=== PATIENT | male | born 1985 | race American Indian/Alaskan Native ===

== ENCOUNTER 2017-07-22 11:26 | Emergency (ER) | payer MEDICARE ==
[2017-07-22 13:52] LABS: Basophils % (Auto) 0.3 % (0.0-1.8); Eosinophils # (Auto) 0.5 K/mm3 (0.0-0.4); Eosinophils % (Auto) 3.7 % (0.0-4.3); Hematocrit 46.1 % (35.5-45.6); Hemoglobin 15.7 gm/dl (11.8-15.2); Lymphocytes # (Auto) 4.1 K/mm3 (1.2-5.4); Lymphocytes % (Auto) 29.1 % (13.4-35.0); Mean Corpuscular HGB Conc 34 % (32-34); Mean Corpuscular Hemoglobin 28 pg (28-32); Mean Corpuscular Volume 82 fl (84-94); Monocytes % (Auto) 7.4 % (0.0-7.3); Platelet Count 184 K/mm3 (140-440); Red Blood Count 5.59 M/mm3 (3.65-5.03); Red Cell Distribution Width 15.4 % (13.2-15.2)
[2017-07-22 14:07] LABS: Bacteria,Urine 1+ /HPF (Negative); Bilirubin,Urine SM (Negative); Blood,Urine NEG (Negative); Color,Urine Amber (Yellow); Hyaline Casts,Urine 46 /LPF; Mucus,Urine FEW /HPF; Nitrite,Urine NEG (Negative)
[2017-07-22 14:10] LABS: Calcium 9.7 mg/dL (8.4-10.2)
[2017-07-22 14:12] LABS: Alanine Aminotransferase 7 units/L (7-56); Albumin 4.9 g/dL (3.9-5)
[2017-07-22 14:13] LABS: Ictotest,Urine Negative (Negative)
[2017-07-22 14:14] LABS: Bilirubin,Direct < 0.2 mg/dL (0-0.2)
[2017-07-22] MEDS ORDERED: ZOFRAN IV ONE (17:21)
[2017-07-22] MEDS ORDERED: NACL 0.9% 1000 ML 1,000 ML IV ONE ×2 (17:21→20:08)
--- NOTE | 2017-07-22 17:39 | Emergency Department Report ---
ED N/V/D HPI - General Chief complaint: Nausea/Vomiting/Diarrhea Stated complaint: DEHYDRATED Time Seen by Provider: 07/22/17 17:06 Source: patient, old records reviewed Mode of arrival: Ambulatory Limitations: No Limitations - History of Present Illness Initial comments: 31 yo male past medical history hypertension which resolved after renal transplant, renal transplant 2 secondary to nephrotic syndrome presents to the hospital complains of dehydration secondary to nausea, vomiting, and diarrhea with 3 days. Patient unable to tolerate much by mouth intake. Patient denies fever, recent travel, sick contacts, hematochezia, hematemesis, or abdominal pain. Patient does take immune suppressive medication. Patient first renal transplant was in 2000 and patient required a second renal transplant on the opposite side 6 years ago due to initial transplant failure. [facility] [employer] at [facility] is Dr. Ponce - Related Data Home Medications Medication Instructions Recorded Confirmed Last Taken Mycophenolate Mofetil 1,000 mg PO BID 04/11/15 04/11/15 04/10/15 Pantoprazole [Protonix] 40 mg PO QDAY 04/11/15 04/11/15 04/10/15 Prednisone [predniSONE (Ruth) ER 5 mg PO QDAY 04/11/15 04/11/15 04/10/15 TAB] Tacrolimus [Prograf] 4 mg PO QDAY 04/11/15 04/11/15 04/10/15 Tretinoin/Emollient Base 40 gm TP QDAY 04/11/15 04/11/15 04/10/15 [Tretinoin 0.05% Emollient Crm] levETIRAcetam [Keppra TAB] 500 mg PO BID 04/11/15 04/11/15 04/10/15 Previous Rx's Medication Instructions Recorded Last Taken Type Gentamicin 0.3% Ophth Soln 2 drops OP Q4H #1 bottle 07/01/15 Unknown Rx Allergies Allergy/AdvReac Type Severity Reaction Status Date / Time No Known Allergies Allergy Verified 04/11/15 01:21 ED Review of Systems ROS: Stated complaint: DEHYDRATED Other details as noted in HPI Comment: All other systems reviewed and negative Other: Constitutional: No fevers chills Eyes: No eye pain visual changes ENT: No ear pain or throat pain Neck: Denies pain Respiratory: Denies cough wheezing shortness of breath Cardiovascular: Denies chest pain, palpitations, syncope GI: as per hpi : Denies dysuria Musculoskeletal: Denies back pain Skin: Denies rash, lesions, erythema Neurologic: Denies headache, numbness, weakness Psychiatric: Denies suicidal ideation, hallucinations ED Past Medical Hx - Past Medical History Previous Medical History?: Yes Hx Hypertension: Yes Additional medical history: KIDNEY FAILURE - Surgical History Past Surgical History?: Yes Additional Surgical History: BILATERAL KIDNEY TRANSPLANT - Social History Smoking Status: Current Every Day Smoker Substance Use Type: Marijuana, Prescribed - Medications Home Medications: Home Medications Medication Instructions Recorded Confirmed Last Taken Type Mycophenolate Mofetil 1,000 mg PO BID 04/11/15 04/11/15 04/10/15 History Pantoprazole [Protonix] 40 mg PO QDAY 04/11/15 04/11/15 04/10/15 History Prednisone [predniSONE (Ruth) ER 5 mg PO QDAY 04/11/15 04/11/15 04/10/15 History TAB] Tacrolimus [Prograf] 4 mg PO QDAY 04/11/15 04/11/15 04/10/15 History Tretinoin/Emollient Base 40 gm TP QDAY 04/11/15 04/11/15 04/10/15 History [Tretinoin 0.05% Emollient Crm] levETIRAcetam [Keppra TAB] 500 mg PO BID 04/11/15 04/11/15 04/10/15 History Gentamicin 0.3% Ophth Soln 2 drops OP Q4H #1 bottle 07/01/15 Unknown Rx ED Physical Exam - General Limitations: No Limitations - Other Other exam information: General: No limitations, patient is alert in no acute distress Head exam: Atraumatic, normocephalic Eyes exam: Normal appearance ENT: Moist mucous membrane, normal oropharynx Neck exam: Normal inspection, full range of motion Respiratory exam: Clear to auscultation bilateral, no wheezes, rales, crackles Cardiovascular: Normal rate and rhythm, normal heart sounds Abdomen: Soft, nondistended, scars to bilateral lower abdomen secondary to surgery, with normal bowel sounds, no rebound, or guarding Extremity: Full range of motion normal inspection no deformity Back: Normal Inspection, full range of motion, no tenderness Neurologic: Alert, oriented x3, cranial nerves intact, no motor or sensory deficit Psychiatric: normal affect, normal mood Skin: Warm, dry, intact ED Course Vital Signs 07/22/17 07/22/17 12:37 19:16 Temperature 98.9 F 98.1 F Pulse Rate 94 H 98 H Respiratory 16 16 Rate Blood Pressure 104/69 Blood Pressure 119/88 [Left] O2 Sat by Pulse 94 100 Oximetry - Consultations Consultation #1: 07/22/17 17:39 [facility] paged to transfer pt given hx of renal transplant. Awaiting call back. 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 07/22/17 18:52 call back at this time Case d/w Dr Albert at [facility] rec urine culture, blood culture Pt accepted to [facility] (awaiting bed availability) 07/22/17 19:30 [facility] transfer notified of unremarkable ct abd/pelvis (no acute findings) ED Medical Decision Making - Lab Data Result diagrams: 07/22/17 13:40 07/22/17 13:40 Lab Results 07/22/17 07/22/17 07/22/17 Range/Units 13:40 13:40 13:40 WBC 14.1 H (4.5-11.0) K/mm3 RBC 5.59 H (3.65-5.03) M/mm3 Hgb 15.7 H (11.8-15.2) gm/dl Hct 46.1 H (35.5-45.6) % MCV 82 L (84-94) fl MCH 28 (28-32) pg MCHC 34 (32-34) % RDW 15.4 H (13.2-15.2) % Plt Count 184 (140-440) K/mm3 Lymph % (Auto) 29.1 (13.4-35.0) % [place] % (Auto) 7.4 H (0.0-7.3) % Eos % (Auto) 3.7 (0.0-4.3) % Baso % (Auto) 0.3 (0.0-1.8) % Lymph # 4.1 (1.2-5.4) K/mm3 [place] # 1.0 H (0.0-0.8) K/mm3 Eos # 0.5 H (0.0-0.4) K/mm3 Baso # 0.0 (0.0-0.1) K/mm3 Seg Neutrophils % 59.5 (40.0-70.0) % Seg Neutrophils # 8.4 H (1.8-7.7) K/mm3 Sodium 137 (137-145) mmol/L Potassium 4.6 (3.6-5.0) mmol/L Chloride 99.3 (98-107) mmol/L Carbon Dioxide 21 L (22-30) mmol/L Anion Gap 21 mmol/L BUN 49 H (9-20) mg/dL Creatinine 3.5 H (0.8-1.5) mg/dL Estimated GFR 25 ml/min BUN/Creatinine Ratio 14 % Glucose 102 H (75-100) mg/dL Calcium 9.7 (8.4-10.2) mg/dL Total Bilirubin 0.30 (0.1-1.2) mg/dL Direct Bilirubin < 0.2 (0-0.2) mg/dL Indirect Bilirubin 0.1 mg/dL AST 16 (5-40) units/L ALT 7 (7-56) units/L Alkaline Phosphatase 108 (35-129) units/L Total Protein 8.2 (6.3-8.2) g/dL Albumin 4.9 (3.9-5) g/dL Albumin/Globulin Ratio 1.5 % Lipase (13-60) units/L Urine Color (Yellow) Urine Turbidity (Clear) Urine pH (5.0-7.0) Ur Specific [place] (1.003-1.030) Urine Protein (Negative) mg/dL Urine Glucose (UA) (Negative) mg/dL Urine Ketones (Negative) mg/dL Urine Blood (Negative) Urine Nitrite (Negative) Urine Bilirubin (Negative) Urine Ictotest (Negative) Urine Urobilinogen (<2.0) mg/dL Ur Leukocyte Esterase (Negative) Urine WBC (Auto) (0.0-6.0) /HPF Urine RBC (Auto) (0.0-6.0) /HPF U Epithel Cells (Auto) (0-13.0) /HPF Urine Bacteria (Auto) (Negative) /HPF Hyaline Casts /LPF Urine Mucus /HPF 07/22/17 07/22/17 Range/Units 13:40 13:45 WBC (4.5-11.0) K/mm3 RBC (3.65-5.03) M/mm3 Hgb (11.8-15.2) gm/dl Hct (35.5-45.6) % MCV (84-94) fl MCH (28-32) pg MCHC (32-34) % RDW (13.2-15.2) % Plt Count (140-440) K/mm3 Lymph % (Auto) (13.4-35.0) % [place] % (Auto) (0.0-7.3) % Eos % (Auto) (0.0-4.3) % Baso % (Auto) (0.0-1.8) % Lymph # (1.2-5.4) K/mm3 [place] # (0.0-0.8) K/mm3 Eos # (0.0-0.4) K/mm3 Baso # (0.0-0.1) K/mm3 Seg Neutrophils % (40.0-70.0) % Seg Neutrophils # (1.8-7.7) K/mm3 Sodium (137-145) mmol/L Potassium (3.6-5.0) mmol/L Chloride (98-107) mmol/L Carbon Dioxide (22-30) mmol/L Anion Gap mmol/L BUN (9-20) mg/dL Creatinine (0.8-1.5) mg/dL Estimated GFR ml/min BUN/Creatinine Ratio % Glucose (75-100) mg/dL Calcium (8.4-10.2) mg/dL Total Bilirubin (0.1-1.2) mg/dL Direct Bilirubin (0-0.2) mg/dL Indirect Bilirubin mg/dL AST (5-40) units/L ALT (7-56) units/L Alkaline Phosphatase (35-129) units/L Total Protein (6.3-8.2) g/dL Albumin (3.9-5) g/dL Albumin/Globulin Ratio % Lipase 54 (13-60) units/L Urine Color [place] (Yellow) Urine Turbidity Slightly-cloudy (Clear) Urine pH 5.0 (5.0-7.0) Ur Specific [place] 1.020 (1.003-1.030) Urine Protein 100 mg/dl (Negative) mg/dL Urine Glucose (UA) Neg (Negative) mg/dL Urine Ketones Neg (Negative) mg/dL Urine Blood Neg (Negative) Urine Nitrite Neg (Negative) Urine Bilirubin Sm (Negative) Urine Ictotest Negative (Negative) Urine Urobilinogen 2.0 (<2.0) mg/dL Ur Leukocyte Esterase Sm (Negative) Urine WBC (Auto) 16.0 H (0.0-6.0) /HPF Urine RBC (Auto) 13.0 (0.0-6.0) /HPF U Epithel Cells (Auto) 2.0 (0-13.0) /HPF Urine Bacteria (Auto) 1+ (Negative) /HPF Hyaline Casts 46 /LPF Urine Mucus Few /HPF - Radiology Data Radiology results: report reviewed CT of her pelvis noncontrast: No acute intra-abdominal process. Satisfactory appearance of the transplant kidney in the left iliac fossa. No evidence for hydronephrosis. Bony finding as mentioned (multiple sclerotic foci scattered throughout the pelvis and spine suggestive of renal osteodystrophy) - Medical Decision Making Other differential: Viral syndrome, influenza Nausea, vomiting, diarrhea, gastroenteritis CT shows Flu test negative Blood cultures pending Acute renal sufficiency Likely secondary to dehydration Patient is a renal transplant patient and takes immunosuppressive medication As discussed with family transplant team and they have accepted for admission IV fluids initiated Zofran initially Urine WBC count increase Positive bacteria, small leuks, increased WBC count Culture pending Rocephin initiated - Differential Diagnosis gastroenteritis, appendicitis, diverticulitis, dehydration, renal insuffici Critical Care Time: No Critical care attestation.: If time is entered above; I have spent that time in minutes in the direct care of this critically ill patient, excluding procedure time. ED Disposition Clinical Impression: Gastroenteritis, Acute renal insufficiency, Hx of kidney transplant, Dehydration Disposition: DC/TX-70 ANOTHER TYPE HLTHCARE Is pt being admited?: No Condition: Stable Time of Disposition: 20:09 (Awaiting bed assignment at [facility]. Dr Roosevelt ba md)
[2017-07-22] MEDS ORDERED: ROCEPHIN/NS 1 GM/50 ML 1 GM/50 ML BAG IV ONE (18:59)
--- NOTE | 2017-07-22 19:22 | Cat Scan Report ---
FINAL REPORT EXAM: CT ABDOMEN PELVIS WO CON HISTORY: n,v,d, dehydration, renal insuf, hx renal transplant TECHNIQUE: Standard unenhanced CT of the abdomen and pelvis. Coronal and sagittal reconstruction was also performed. PRIORS: None. FINDINGS: The [place] kidneys are atrophied with the ptotic right kidney located in the region of the right pericolic gutter. There is a renal transplant in the left iliac fossa which appears normal in cortical thickness and size. No hydronephrosis is present associated with the transplanted kidney. Within the abdomen, the liver, spleen, pancreas, gallbladder, and adrenal glands are unremarkable. No evidence for retroperitoneal or pelvic lymphadenopathy is seen. The bowel loops have normal caliber. No soft tissue mass, fluid collection, inflammatory change, or free air is seen within the abdomen or pelvis. The appendix is normal. Within the pelvis, the bladder is unremarkable. The prostate is normal. No evidence for mass or lymphadenopathy is seen in the pelvis. Images through the upper abdomen include the lung bases which are expanded and clear. Bony structures show numerous sclerotic foci scattered throughout the pelvis and spine. There are mild findings throughout the spine suggesting renal osteodystrophy. IMPRESSION: 1. no acute intra-abdominal process noted. 2. satisfactory appearance of a transplanted kidney in the left iliac fossa. No evidence for hydronephrosis is seen. 3. Bony finding as mentioned above.
[2017-07-22] MEDS ORDERED: cefTRIAXone 1 GM in NACL 0.9% 20 ML IV ONE (20:00)
[2017-07-23 00:55] VITALS: BP 103/64
== END 2017-07-23 01:15 | disposition other institution (70) ==
LOC: ED 11:26
DX: K52.9 Noninfective gastroenteritis and colitis, unspecified (principal); N28.9 Disorder of kidney and ureter, unspecified; E86.0 Dehydration; Z94.0 Kidney transplant status
CPT/HCPCS: 36415; 74176; 80048; 80074; 81001; 83690; 85025; 87040; 87086; 87400; 96361; 96365; 96366; 96375; 99285; J0696; J2405; J7030

== ENCOUNTER 2019-08-05 14:45 | Emergency (ER) | payer MEDICARE ==
[2019-08-05] MEDS ORDERED: IBUPROFEN 400 MG TAB PO ONE (16:44)
[2019-08-05] MEDS ORDERED: ACETAMINOPHEN 500 MG TAB PO ONE (16:44)
[2019-08-05 16:45] VITALS: BP 137/90
--- NOTE | 2019-08-05 16:46 | Emergency Department Report ---
Chief Complaint: Sore Throat Stated Complaint: RT SIDE NECK/EAR PAIN - HPI History of Present Illness: 33 y/o male live renal transplant on immune suppressant medication p/w sore throad right sided adenopathy referred otoloic pain states last creatinine was normal neck supple phonating well suspect viral pharingitis vs strep rapid strep give meds reassess Vital Signs 08/05/19 16:42 Temperature 98.3 F Pulse Rate 70 Respiratory 18 Rate Blood Pressure 137/90 O2 Sat by Pulse 100 Oximetry MSE screening note: Focused history and physical exam performed. Due to findings the following was ordered: ED Disposition for MSE Condition: Stable
== END 2019-08-05 21:00 | disposition left against medical advice (07) ==
LOC: ED 14:45
DX: J02.9 Acute pharyngitis, unspecified (principal)
CPT/HCPCS: 99282

== ENCOUNTER 2019-08-07 13:31 | Emergency (ER) | payer MEDICARE ==
[2019-08-07 14:38] VITALS: BP 119/87
[2019-08-07] MEDS ORDERED: DEXAMETHASONE 4 MG TAB PO ONE (15:12)
--- NOTE | 2019-08-07 15:14 | Emergency Department Report ---
HPI - General Chief Complaint: Sore Throat - HPI HPI: 33 yo AA M presents to the ED with the complaint of a 5-6 day history of a sore throat, right ear pain and "swollen glands." He says it is painful to swallow both liquids and solid. No fever. He has taken advil with some mild transient relief. No recent travel or sick contacts at home. He has new PCP at [facility]. He has a history of neprhotic syndrome with two previous kidney transplants. He is not on dialysis. No CP, cough, SOB, LEMUS. ED Past Medical Hx - Past Medical History Hx Hypertension: Yes Additional medical history: KIDNEY FAILURE. nephrotic syndrome - Surgical History Additional Surgical History: BILATERAL KIDNEY TRANSPLANT - Social History Smoking Status: Current Every Day Smoker Substance Use Type: Marijuana - Medications Home Medications: Home Medications Medication Instructions Recorded Confirmed Last Taken Type Pantoprazole [Protonix] 40 mg PO QDAY 04/11/15 04/11/15 04/10/15 History Prednisone [predniSONE (Ruth) ER 5 mg PO QDAY 04/11/15 04/11/15 04/10/15 History TAB] Tacrolimus [Prograf] 4 mg PO QDAY 04/11/15 04/11/15 04/10/15 History Tretinoin/Emollient Base 40 gm TP QDAY 04/11/15 04/11/15 04/10/15 History [Tretinoin 0.05% Emollient Crm] levETIRAcetam [Keppra TAB] 500 mg PO BID 04/11/15 04/11/15 04/10/15 History mycophenolate mofetiL 1,000 mg PO BID 04/11/15 04/11/15 04/10/15 History [Mycophenolate Mofetil] Gentamicin 0.3% Ophth Soln 2 drops OP Q4H #1 bottle 07/01/15 Unknown Rx Azithromycin [Zithromax Tri-Rick] 500 mg PO QDAY #5 tablet 08/07/19 Unknown Rx ED Review of Systems ROS: Stated complaint: SORE THROAT/HEADACHE Other details as noted in HPI Comment: All other systems reviewed and negative Constitutional: denies: chills, fever Eyes: denies: eye pain, vision change ENT: ear pain, throat pain Respiratory: denies: cough, shortness of breath Cardiovascular: denies: chest pain Gastrointestinal: denies: abdominal pain Skin: denies: rash, lesions Neurological: denies: headache, weakness Physical Exam - Physical Exam Vital Signs: Vital Signs 08/07/19 13:34 Temperature 98.0 F Pulse Rate 91 H Respiratory 18 Rate Blood Pressure 119/87 O2 Sat by Pulse 99 Oximetry Physical Exam: GENERAL: The patient is well-developed well-nourished. HEENT: Normocephalic. Atraumatic. Patient has moist mucous membranes. Patient has bilateral tonsillar hypertrophy to the point where the tonsils are almost touching. There is erythema but no obvious exudates. No drooling or trismus. EYES: Extraocular motions are intact. Pupils equal and reactive to light bilaterally. NECK: Supple. Trachea is midline. Bilateral tender but mobile submandibular lymph nodes. CHEST/LUNGS: Clear to auscultation. There is no respiratory distress noted. HEART/CARDIOVASCULAR: Regular. There is no tachycardia. There is no murmur. ABDOMEN: Abdomen is soft, nontender. Patient has normal bowel sounds. There is no abdominal distention. SKIN:Skin is warm and dry. . NEURO: The patient is awake, alert, and oriented. The patient is cooperative. The patient has no focal neurologic deficits. Normal speech. MUSCULOSKELETAL: There is no tenderness or deformity. There is no evidence of acute injury. ED Course Vital Signs 08/07/19 13:34 Temperature 98.0 F Pulse Rate 91 H Respiratory 18 Rate Blood Pressure 119/87 O2 Sat by Pulse 99 Oximetry ED Medical Decision Making - Medical Decision Making This patient presents with a 5-6 day history of sore throat, subjective fever an d swollen lymph nodes. On examination patient has tonsillar hypertrophy and erythema. No drooling or trismus. The patient does not appear in any acute distress. Vital signs stable throughout his ED course. He'll be treated with a dose of Decadron here and placed on azithromycin. He has been given referrals for primary care. He will return to the ER for any worsening of symptoms or any acute distress. We discussed staying away from any further NSAID use secondary to his history of nephrotic syndrome and kidney transplants. - Differential Diagnosis tonsillitis, strep pharyngitis, viral URI Critical Care Time: No Critical care attestation.: If time is entered above; I have spent that time in minutes in the direct care of this critically ill patient, excluding procedure time. ED Disposition Clinical Impression: Tonsillitis Pharyngitis Qualifiers: Pharyngitis/tonsillitis etiology: unspecified etiology Qualified Code(s): J02.9 - Acute pharyngitis, unspecified Disposition: TO HOME OR SELFCARE Is pt being admited?: No Condition: Stable Instructions: Tonsillitis (ED) Additional Instructions: Please follow up with your primary care physician in the next few days. Return to the emergency department with any worsening of your symptoms or any acute distress. Take the medications as prescribed. Prescriptions: Azithromycin [Zithromax Tri-Rick] 500 mg PO QDAY #5 tablet Referrals: Primary Care Provider, Your [Other] - 2-3 Days Time of Disposition: 15:15
== END 2019-08-07 15:30 | disposition home or self-care (01) ==
LOC: ED 13:31
DX: J02.9 Acute pharyngitis, unspecified (principal); N19 Unspecified kidney failure; F17.200 Nicotine dependence, unspecified, uncomplicated; F12.10 Cannabis abuse, uncomplicated; Z98.890 Other specified postprocedural states; Z88.0 Allergy status to penicillin; Z79.899 Other long term (current) drug therapy
CPT/HCPCS: 99282; J8540

== ENCOUNTER 2020-02-27 22:42 | Emergency (ER) | payer MEDICARE ==
[2020-02-27 23:36] LABS: Hematocrit 39.3 % (35.5-45.6); Hemoglobin 13.5 gm/dl (11.8-15.2); Mean Corpuscular HGB Conc 34 % (32-34); Mean Corpuscular Volume 84 fl (84-94); Platelet Count 179 K/mm3 (140-440); Red Blood Count 4.69 M/mm3 (3.65-5.03); Red Cell Distribution Width 15.3 % (13.2-15.2)
--- NOTE | 2020-02-27 23:52 | Cat Scan Report ---
CT cervical spine wo con INDICATION: fall hit head neck pain. TECHNIQUE: All CT scans at this location are performed using the following dose modulation technique: Automated exposure control. CONTRAST: None. COMPARISON: None available. FINDINGS: Satisfactory alignment without vertebral compression or significant degenerative change. No significant soft tissue abnormality. Impression: Negative CT cervical spine without contrast. Signer Name: Jw Reddy MD Signed: 02/27/2020 11:48 PM Workstation Name: [id number]
[2020-02-27 23:56] LABS: BUN/Creatinine Ratio 13; Blood Urea Nitrogen 16 mg/dL (9-20); Calcium 9.5 mg/dL (8.4-10.2); Hemolysis Index 23
[2020-02-28] MEDS ORDERED: IBUPROFEN 800 MG TAB ONE (00:03)
--- NOTE | 2020-02-28 00:06 | Cat Scan Report ---
CT head/brain wo con INDICATION: fall hit head. TECHNIQUE: All CT scans at this location are performed using the following dose modulation technique: Automated exposure control. CONTRAST: None. COMPARISON: None available. FINDINGS: The ventricular system is appropriate in size and configuration without midline shift. The deep white matter is diffusely low in density without focal abnormality. Negative for mass or stroke. A hemorrhagic contusion is seen within the inferior aspect of the right frontal lobe measuring approximately 1.8 cm. A thin subdural hematoma extends along the frontal and t emporal regions measuring several millimeters Negative for bony injury or sinus air-fluid level. IMPRESSION: 1. Hemorrhagic contusion inferior right frontal lobe with associated subdural hematoma at the frontal and temporal regions. 2. Diffuse low density within the white matter of uncertain etiology. Given the symmetry, this may be incidental. CRITICAL RESULT: Time of Discovery: 10:59 PM Time of Communication: 11:01 PM Licensed Practitioner Receiving Report: Read Back Performed: Yes. Signer Name: Jw Reddy MD Signed: 02/28/2020 12:01 AM Workstation Name: [id number]
--- NOTE | 2020-02-28 00:11 | Emergency Department Report ---
ED Altered Mental Status HPI - General Chief Complaint: Altered Mental Status Stated Complaint: HEAD PAIN/FALL PUI?: No Time Seen by Provider: 02/27/20 23:40 Source: patient Mode of arrival: Ambulatory Limitations: No Limitations - History of Present Illness Initial Comments: Patient is a 34-year-old male that presents emergency room with complaints of confusion, difficulty walking, weakness, fall and neck pain. Patient states he does not remember hitting his head. Patient states that he is having difficulty remembering some details.. Patient states his symptoms started 1 hour ago. Patient states that he does not drink. Patient states he only uses marijuana. Patient states he had a kidney transplant 4 years ago. Patient denies chest pain or shortness of breath. Patient denies fever. Patient denies cough. Jen ent denies shortness of breath. Patient states that his neck pain is severe and is a 10 out of 10. Patient states states that the base of his neck. Patient states the pain is worse with movement better with rest. Patient states they put the c-collar on him in triage. Patient states he had a c-collar on the entire time. Patient answers most questions appropriately. Patient is currently oriented x2. Patient is oriented to place and person. Patient is disoriented to situation and time. Patient denies recent travel. Patient denies recent international travel. Patient denies exposure to the novel coronavirus. Patient denies sick contacts. Patient denies fever and chills. Patient denies cough. Patient denies diarrhea. Patient denies coming in contact with anybody with symptoms of the novel coronavirus. I discussed the history of present illness with the patient's mother. Patient's mother states that the patient did hit his head but did not have a loss of consciousness. Mother states the patient been complaining of severe neck pain. Mother states that the patient fell and hit the back of his head on a countertop. MD Complaint: altered mental status, confusion, weakness -: Sudden Severity: severe Consistency of Symptoms: constant Context: trauma Associated Symptoms: headaches, malaise, weakness, difficulty walking. denies: chest pain, cough, diaphoresis, fever/chills, loss of appetite, nausea/vomiting, seizure, shortness of breath, syncope, foul smelling urine, diarrhea, incontinence - Related Data Home Medications Medication Instructions Recorded Confirmed Last Taken Pantoprazole [Protonix] 40 mg PO QDAY 04/11/15 04/11/15 04/10/15 Prednisone [predniSONE (Ruth) ER 5 mg PO QDAY 04/11/15 04/11/15 04/10/15 TAB] RX: mycophenolate mofetiL 1,000 mg PO BID 04/11/15 04/11/15 04/10/15 [Mycophenolate Mofetil] Tacrolimus [Prograf] 4 mg PO QDAY 04/11/15 04/11/15 04/10/15 Tretinoin/Emollient Base 40 gm TP QDAY 04/11/15 04/11/15 04/10/15 [Tretinoin 0.05% Emollient Crm] levETIRAcetam [Keppra TAB] 500 mg PO BID 04/11/15 04/11/15 04/10/15 Previous Rx's Medication Instructions Recorded Last Taken Type RX: Gentamicin 0.3% Ophth Soln 2 drops OP Q4H #1 bottle 07/01/15 Unknown Rx RX: Azithromycin [Zithromax 500 mg PO QDAY #5 tablet 08/07/19 Unknown Rx [facility]] Allergies Allergy/AdvReac Type Severity Reaction Status Date / Time Penicillins Allergy Rash Verified 08/07/19 13:32 ED Review of Systems ROS: Stated complaint: HEAD PAIN/FALL Other details as noted in HPI Constitutional: denies: chills, fever Eyes: denies: eye pain, eye discharge, vision change ENT: denies: ear pain, throat pain Respiratory: denies: cough, shortness of breath, wheezing Cardiovascular: denies: chest pain, palpitations Endocrine: no symptoms reported Gastrointestinal: denies: abdominal pain, nausea, diarrhea Genitourinary: denies: urgency, dysuria Musculoskeletal: denies: back pain, joint swelling, arthralgia Skin: denies: rash, lesions Neurological: headache, confusion, abnormal gait. denies: weakness, paresthesias Psychiatric: denies: anxiety, depression Hematological/Lymphatic: denies: easy bleeding, easy bruising ED Past Medical Hx - Past Medical History Previous Medical History?: Yes Hx Hypertension: Yes Hx Diabetes: No Additional medical history: KIDNEY FAILURE. nephrotic syndrome - Surgical History Past Surgical History?: Yes Additional Surgical History: BILATERAL KIDNEY TRANSPLANT - Family History Family history: no significant - Social History Smoking Status: Current Every Day Smoker Substance Use Type: Marijuana - Medications Home Medications: Home Medications Medication Instructions Recorded Confirmed Last Taken Type Pantoprazole [Protonix] 40 mg PO QDAY 04/11/15 04/11/15 04/10/15 History Prednisone [predniSONE (Ruth) ER 5 mg PO QDAY 04/11/15 04/11/15 04/10/15 History TAB] RX: mycophenolate mofetiL 1,000 mg PO BID 04/11/15 04/11/15 04/10/15 History [Mycophenolate Mofetil] Tacrolimus [Prograf] 4 mg PO QDAY 04/11/15 04/11/15 04/10/15 History Tretinoin/Emollient Base 40 gm TP QDAY 04/11/15 04/11/15 04/10/15 History [Tretinoin 0.05% Emollient Crm] levETIRAcetam [Keppra TAB] 500 mg PO BID 04/11/15 04/11/15 04/10/15 History RX: Gentamicin 0.3% Ophth Soln 2 drops OP Q4H #1 bottle 07/01/15 Unknown Rx RX: Azithromycin [Zithromax 500 mg PO QDAY #5 tablet 08/07/19 Unknown Rx Tri-[facility]] ED Physical Exam - General Limitations: No Limitations General appearance: in no apparent distress, lethargic (Easily arousable) - Head Head exam: Present: atraumatic, normocephalic - Eye Eye exam: Present: normal appearance, PERRL Pupils: Present: normal accommodation - ENT ENT exam: Present: mucous membranes moist - Neck Neck exam: Present: normal inspection, tenderness - Respiratory Respiratory exam: Present: normal lung sounds bilaterally. Absent: respiratory distress - Cardiovascular Cardiovascular Exam: Present: regular rate, normal rhythm. Absent: systolic murmur, diastolic murmur, rubs, gallop - GI/Abdominal GI/Abdominal exam: Present: soft, normal bowel sounds - Rectal Rectal exam: Present: deferred - Extremities Exam Extremities exam: Present: normal inspection - Back Exam Back exam: Present: normal inspection - Neurological Exam Neurological exam: Present: altered - Psychiatric Psychiatric exam: Present: normal mood - Skin Skin exam: Present: warm, dry, intact, normal color. Absent: rash - Assessment Assessment Interval: Baseline - Level of Consciousness 1a. Level of Consciousness: arousable/minor stimuli - LOC Questions 1b. LOC Questions: answers 1 question correctly - LOC Command 1c. LOC Commands: performs tasks correctly - Best Gaze 2. Best Gaze: normal - Visual 3. Visual: no visual loss - Facial Palsy 4. Facial Palsy: normal symmetrical movement - Motor Arm 5a. Motor Arm Left: no drift 5b. Motor Arm Right: no drift - Motor Leg 6a. Motor Leg Left: no drift 6b. Motor Leg Right: no drift - Limb Ataxia 7. Limb Ataxia: absent - Sensory 8. Sensory: normal - Best Language 9. Best Language: no aphasia - Dysarthria 10. Dysarthria: normal - Extinction and Inattention 11. Extinction/Inattention: no abnormality - Scoring Total Score: 2 Stroke Severity: Minor Stroke ED Course Vital Signs 02/27/20 22:52 Temperature 97.9 F Pulse Rate 104 H Respiratory 16 Rate Blood Pressure 119/93 O2 Sat by Pulse 97 Oximetry - Reevaluation(s) Reevaluation #1: The radiologist called me with a positive intracranial hemorrhage on CT scan of the head. The patient was in our waiting room and I went to the waiting room and brought the patient back to room 22. Patient is lethargic but easily mary usable. I discussed the HPI at that time with the patient's mother 02/27/20 23:40 Reevaluation #2: I discussed all results and clinical findings with patient. I discussed plan of care with patient. Patient agrees with plan of care. Patient is stable for floor transfer. 02/28/20 00:25 Reevaluation #3: Patient with transfer via ground EMS. C-collar removed. 02/28/20 00:37 - Consultations Consultation #1: I discussed case with [facility]. [facility] attending, Dr. Murillo has accepted the patient to be transferred ER to ER to [facility]. 02/28/20 00:23 - Lab Data Result diagrams: 02/27/20 23:17 02/27/20 23:17 Lab Results 02/27/20 02/27/20 02/27/20 Range/Units 23:17 23:17 23:17 WBC 18.3 H (4.5-11.0) K/mm3 RBC 4.69 (3.65-5.03) M/mm3 Hgb 13.5 (11.8-15.2) gm/dl Hct 39.3 (35.5-45.6) % MCV 84 (84-94) fl MCH 29 (28-32) pg MCHC 34 (32-34) % RDW 15.3 H (13.2-15.2) % Plt Count 179 (140-440) K/mm3 Lymph % (Auto) Not Reportable Hale % (Auto) Not Reportable Eos % (Auto) Not Reportable Baso % (Auto) Not Reportable Lymph # Not Reportable Hale # Not Reportable Eos # Not Reportable Baso # Not Reportable Seg Neutrophils # Not Reportable Sodium 140 (137-145) mmol/L Potassium 3.8 (3.6-5.0) mmol/L Chloride 103.7 (98-107) mmol/L Carbon Dioxide 18 L (22-30) mmol/L Anion Gap 22 mmol/L BUN 16 (9-20) mg/dL Creatinine 1.2 (0.8-1.3) mg/dL Estimated GFR > 60 ml/min BUN/Creatinine Ratio 13 % Glucose 191 H (75-100) mg/dL Calcium 9.5 (8.4-10.2) mg/dL Plasma/Serum Alcohol < 0.01 (0-0.07) % - EKG Data -: EKG Interpreted by [facility] EKG shows normal: sinus rhythm, axis, intervals, QRS complexes, ST-T waves Rate: tachycardia Interpretation: LVH - Radiology Data Radiology results: report reviewed CT head/brain wo con INDICATION: fall hit head. TECHNIQUE: All CT scans at this location are performed using the following dose modulation technique: Automated exposure control. CONTRAST: None. COMPARISON: None available. FINDINGS: The ventricular system is appropriate in size and configuration without midline shift. The deep white matter is diffusely low in density without focal abnormality. Negative for mass or stroke. A hemorrhagic contusion is seen within the inferior aspect of the right frontal lobe measuring approximately 1.8 cm. A thin subdural hematoma extends along the frontal and temporal regions measuring several millimeters Negative for bony injury or sinus air-fluid level. IMPRESSION: 1. Hemorrhagic contusion inferior right frontal lobe with associated subdural hematoma at the frontal and temporal regions. 2. Diffuse low density within the white matter of uncertain etiology. Given the symmetry, this may be incidental. CT cervical spine wo con INDICATION: fall hit head neck pain. TECHNIQUE: All CT scans at this location are performed using the following dose modulation technique: Automated exposure control. CONTRAST: None. COMPARISON: None available. FINDINGS: Satisfactory alignment without vertebral compression or significant degenerative change. No significant soft tissue abnormality. Impression: Negative CT cervical spine without contrast. - Medical Decision Making Patient is a 34-year-old male that presents emergency room with complaints of fall, head injury, neck pain, confusion, altered mental status. Patient was in our waiting room and had some orders ordered while he was waiting for a bed in triage. Patient had a head CT done and a CT of the neck. The nurse in triage placed the patient into a c-collar for the patient complained of neck pain. Until the patient to be cleared by CT. Patient CT of the neck is negative for fracture. Patient CT of the head shows intracranial and a subdural hematoma. Immediately after the radiologist called with these results, I brought the patient from the waiting room to room 22 and the patient was immediately transferred to [facility]. Patient has been excepted by the trauma attending to be transferred ER to ER. Patient given Dilaudid for pain. Patient given Keppra for seizure prevention. Patient's labs are essentially unremarkable. Patient is critical but stable for transfer to a higher level of care. - Differential Diagnosis Fall, altered mental status, trauma, ich, NECK PAIN, FX. STRAIN, Critical Care Time: Yes Critical care time in (mins) excluding proc time.: 35 Critical care attestation.: If time is entered above; I have spent that time in minutes in the direct care of this critically ill patient, excluding procedure time. Critical Care Time: 35 MINUTES ED Disposition Clinical Impression: SDH (subdural hematoma), Confusion ICH (intracerebral hemorrhage) Qualifiers: Intracerebral hemorrhage etiology: traumatic Encounter type: initial encounter Laterality: unspecified laterality Loss of consciousness presence/duration: without LOC Qualified Code(s): S06.360A - Traumatic hemorrhage of cerebrum, unspecified, without loss of consciousness, initial encounter Fall Qualifiers: Encounter type: initial encounter Qualified Code(s): W19.XXXA - Unspecified fall, initial encounter Head injury Qualifiers: Encounter type: initial encounter Qualified Code(s): S09.90XA - Unspecified injury of head, initial encounter Altered mental state Qualifiers: Altered mental status type: unspecified Qualified Code(s): R41.82 - Altered mental status, unspecified Disposition: DC/TX-70 ANOTHER TYPE HLTHCARE Is pt being admited?: No Does the pt Need Aspirin: No Condition: Critical Time of Disposition: 00:37
[2020-02-28] MEDS ORDERED: HYDROmorphone 1 MG/1 ML INJ IV ONE (00:28)
[2020-02-28] MEDS ORDERED: HYDROmorphone 1 MG/1 ML INJ ONE (00:29)
[2020-02-28] MEDS ORDERED: levETIRAcetam 1000 MG/NS 0.75% 1,000 MG/100 ML BAG IV ONE (00:32)
[2020-02-28 01:58] VITALS: BP 154/85
[2020-02-28 02:01] LABS: Anisocytosis 1+; Basophils % (Manual) 0 % (0.0-1.8); Platelet Estimate Consistent w Auto; Total Cells Counted 100
== END 2020-02-28 01:59 | disposition other institution (70) ==
LOC: ED 22:42
DX: S06.5X0A Traumatic subdural hemorrhage without loss of consciousness, initial encounter (principal); R41.82 Altered mental status, unspecified; I10 Essential (primary) hypertension; F17.200 Nicotine dependence, unspecified, uncomplicated; F12.10 Cannabis abuse, uncomplicated; Z98.890 Other specified postprocedural states; Z79.2 Long term (current) use of antibiotics; Z79.899 Other long term (current) drug therapy; Z88.0 Allergy status to penicillin; W19.XXXA Unspecified fall, initial encounter; Y93.89 Activity, other specified; Y92.89 Other specified places as the place of occurrence of the external cause; Y99.8 Other external cause status
CPT/HCPCS: 36415; 70450; 72125; 80048; 82962; 85007; 85025; 96374; 96375; 99291; J1170; J1953; 80320; 93005; G0480